=== PATIENT | female | born 1960 | race African-American/Black ===

== ENCOUNTER 2019-02-14 09:33 | Emergency (ER) | payer BC, OTHER ==
[~2019-02-14] VITALS: Ht 160 cm; Wt 90.0 kg
[~2019-02-14 09:33] MED LIST: ALBU18HF INHALATION; ALBU2.5V3 NEB; ALBU8.5H5 IH; ASPI-817 PO; BUPR150T18 PO; DIAZ5TAB PO; FLUC150T PO; HYDR-762 PO; LISI-313 PO; LISI40TA3 PO; LORA-186 PO; LORA10TA3 PO; METF100010 PO; MOME0.246 IH; MTF1000T PO; NORT10CA2 PO
[2019-02-14 09:45] VITALS: BP 140/78; PULSE 78; RESP 18; Ht 160 cm; Wt 90.0 kg
[2019-02-14] MEDS ORDERED: DIAZEPAM 5 MG TAB PO ONE (11:00)
== END 2019-02-14 11:01 | disposition home or self-care (01) ==
LOC: FTE 09:33
DX: Z76.0 Encounter for issue of repeat prescription (principal); I10 Essential (primary) hypertension; J45.909 Unspecified asthma, uncomplicated; E11.9 Type 2 diabetes mellitus without complications; Z79.82 Long term (current) use of aspirin; Z79.84 Long term (current) use of oral hypoglycemic drugs; Z87.891 Personal history of nicotine dependence
CPT/HCPCS: 99283; Z7610